=== PATIENT | female | born 1950 | race Caucasian/White ===

== ENCOUNTER 2016-06-21 17:38 | Emergency (ER) | payer OTHER ==
[~2016-06-21] VITALS: Wt 72.0 kg
[2016-06-21] MEDS ORDERED: DIPHTH/TET/ACEL PERTUSS (ADULT) 0.5 ML VIAL IM* ONE (18:30)
--- NOTE | 2016-06-21 19:39 | ERD ---
ER Documentation Chief Complaint Date/Time DATE: 06/21/16 TIME: 19:37 Chief Complaint RIGHT PINKY TOTAL AVUSLION OF TIP BLEEDING NOT CONTROLLED HPI Patient is a 66-year-old female with hypertension who presents with a left fifth finger laceration. She cut the tip of her finger off with a knife. There is no bone exposed at this time and it was just the tip of the finger. It was bleeding a lot however. It happened 30 minutes ago. Upon review of old medical record she has never been here before. She has had no treatment as of yet. She does not take blood thinning medicines. ROS All systems reviewed and are negative except as per history of present illness. PMhx/Soc Hx Cardiac Disorders: Yes (HTN) FmHx Family History: diabetes Physical Exam Vitals Vital Signs Date Time Temp Pulse Resp B/P Pulse Ox O2 Delivery O2 Flow Rate FiO2 06/21/16 17:42 98.5 93 20 150/71 98 Physical Exam Const: No acute distress Head: Atraumatic Eyes: Normal Conjunctiva ENT: Normal External Ears, Nose and Mouth. Neck: Full range of motion..~ No meningismus. Resp: Clear to auscultation bilaterally Cardio: Regular rate and rhythm, no murmurs Abd: Soft, non tender, non distended. Normal bowel sounds Skin: Distal fingertip laceration without any exposed bone Back: No midline or flank tenderness Ext: No cyanosis, or edema Neur: Awake and alert Psych: Normal Mood and Affect Results 24 hrs Current Medications Medications (Trade) Dose Ordered Sig/Chuy Route PRN Reason Start Time Stop Time Status Last Admin Dose Admin Diphtheria/ Tetanus/Acell Pertussis (Adacel) 0.5 ml ONCE ONCE IM* 06/21/16 18:30 06/21/16 18:31 DC 06/21/16 18:24 Procedures/MDM Laceration Repair by me: Anesthesia: None required Location: Left fifth finger Tendon/Joint/Nerves: No injury Foreign body: None detected after copious irrigation and exploration Technique: Dermabond Complexity: No subcutaneous sutures/mucosal repair/ edge excision Post Closure Length: 1 cm Patient's bleeding was easily controlled in the department and there is no indication of anemia. No evidence of compartment syndrome, neurologic injury, vascular injury, open joint, tendon laceration, or foreign body. Patient is appropriate for outpatient follow up. 48 hour wound check. Scar minimization instructions given. Departure Diagnosis: Primary Impression: Laceration Condition: Fair Patient Instructions: Laceration, Hand Referrals: Your doctor Additional Instructions: Llame al doctor MAANA y chantel matilda [place] PARA DENTRO DE 1-2 PATTERSON.Dgale a la secretaria que nosotros le instruimos hacer esta [place].Avise o llame si mendoza condicin se empeora antes de la [place]. Regresa aqui si peor o no mejor. JESSE MARY MD Jun 21, 2016 19:39
== END 2016-06-21 19:17 | disposition home or self-care (01) ==
LOC: FTE 17:38
DX: S61.217A Laceration without foreign body of left little finger without damage to nail, initial encounter (principal); I10 Essential (primary) hypertension; W26.0XXA Contact with knife, initial encounter; Y92.9 Unspecified place or not applicable; Z23 Encounter for immunization
CPT/HCPCS: 12001; 90471; 90715; Z7502

== ENCOUNTER 2016-09-30 09:57 | Day surgery (SDC) | payer OTHER ==
[~2016-09-30] VITALS: Ht 160 cm; Wt 92.0 kg
[2016-09-30 11:15] VITALS: Ht 160 cm; Wt 92.0 kg
[2016-09-30 11:31] VITALS: BP 134/58; PULSE 58; RESP 14
[2016-09-30] MEDS ORDERED: LOSA1TAB20 PO (12:07)
[2016-09-30] MEDS ORDERED: IBUP100T29 PO (12:07)
[2016-09-30] MEDS ORDERED: OMEP20CA16 PO (12:07)
[2016-09-30] MEDS ORDERED: ATOR40TA68 PO (12:07)
[2016-09-30] MEDS ORDERED: MIDAZOLAM 1 MG/ML 2 ML INJ ONE ×2 (12:40)
[2016-09-30] MEDS ORDERED: FENTAnyl 50 MCG/ML VIAL ONE (12:40)
[2016-09-30 12:44] VITALS: BP 100/53; PULSE 56; RESP 12
--- NOTE | 2016-10-24 14:12 | GILP ---
DATE OF PROCEDURE: NAME OF PROCEDURES: 1. Esophagogastroduodenoscopy and biopsy. 2. Colonoscopy. SURGEON: Sher Kirkland MD PREOPERATIVE DIAGNOSES: 1. Abdominal pain. 2. Gastroesophageal reflux disease. 3. Screening colonoscopy. POSTOPERATIVE DIAGNOSES: 1. Hiatal hernia. 2. Gastroesophageal reflux disease. 3. Gastritis with erosions. 4. Gastric mucosal biopsies were taken for Helicobacter pylori test. 5. Colonoscopy all the way to the cecum. 6. Diverticulosis of the colon. 7. Internal hemorrhoids. 8. No colon neoplasm was identified. INDICATION FOR THE PROCEDURE: Ms. Judy Steele is a 66-year-old female patient who had upper abdo preston pain and chronic heartburn, not responding to therapy. She also needed screening colonoscopy. The procedures and possible complications are well explained to the patient. The patient understood and consented to the procedure. DESCRIPTION OF PROCEDURE: Under the influence of fentanyl and Versed, the gastroscope was carefully introduced into the esophagus and under direct vision, it was advanced to the stomach and through t he pylorus into the duodenal bulb and descending duodenum. FINDINGS: ESOPHAGUS: The patient had hiatal hernia and gastroesophageal reflux disease. STOMACH: She had gastritis with severe erosions. Gastric mucosal biopsies were taken for Helicobac ter pylori test. DUODENUM: Normal. The colonoscope was carefully introduced in the rectum and under direct vision, it was advanced all the way to the cecum. FINDINGS: The patient had diverticulosis of the colon. The patient also had internal hemorrhoids. No colon neoplasm was identified. The patient tolerated the procedures very well and there was no complication from the procedures. A t the end of the procedures, she was awake with stable vital signs and she was discharged home to [facility] care of her family. IMPRESSION: Please see postoperative diagnoses. PLAN: 1. Omeprazole 40 mg p.o. q.a.m. 2. Zantac 300 mg p.o. at bedtime. 3. Await histopathology reports. 4. Next screening colonoscopy in 10 years. Dictated By: SHER HENSON/GUS Conf#: [id number] DID#: [id number]
== END 2016-09-30 14:34 | disposition home or self-care (01) ==
LOC: GIL 09:57
PROVIDERS: ATTEND Internal Medicine Gastroenterology
DX: Z12.11 Encounter for screening for malignant neoplasm of colon (principal); K44.9 Diaphragmatic hernia without obstruction or gangrene; K21.9 Gastro-esophageal reflux disease without esophagitis; K29.60 Other gastritis without bleeding; K57.90 Diverticulosis of intestine, part unspecified, without perforation or abscess without bleeding; K64.8 Other hemorrhoids; I10 Essential (primary) hypertension
CPT/HCPCS: 43239; 45378; 87081; J2250; J3010; Z7610

== ENCOUNTER 2018-01-29 06:18 | Emergency (ER) | END 2018-01-29 07:18 | disposition home or self-care (01) ==

== ENCOUNTER 2018-02-01 13:46 | Emergency (ER) | END 2018-02-01 14:33 | disposition home or self-care (01) ==

== ENCOUNTER 2018-10-24 12:18 | Emergency (ER) | payer OTHER ==
[~2018-10-24] VITALS: Ht 162.6 cm; Wt 75.8 kg
[~2018-10-24 12:18] MED LIST: ATOR40TA68 PO; BEN50 PO; FAMO-96 PO; HC30CR25 TOP; IBUP100T29 PO; LOSA1TAB25 PO; OMEP20CA16 PO; PRED20TA PO
[2018-10-24 12:24] VITALS: BP 157/78; PULSE 61; RESP 18; Ht 162.6 cm; Wt 75.8 kg
[2018-10-24] MEDS ORDERED: METHYLPREDNISOLONE 125 MG INJ IV ONE (13:00)
[2018-10-24] MEDS ORDERED: DIPHENHYDRAMINE 50 MG INJ IM ONE (13:00)
[2018-10-24] MEDS ORDERED: PRED20TA PO (13:04)
[2018-10-24] MEDS ORDERED: BEN25 PO (13:04)
--- NOTE | 2018-10-24 13:11 | ERD ---
ER Documentation Chief Complaint Chief Complaint PT with genralized body rash since 3AM today. HPI 68-year-old female presents with itchy rash on the trunk and extremities which began morning. Her only potential new medication is a nonspecified herbal sleep resume she took last night. She has history of hypertension but denies additional new medications. She denies history of known allergies to medications or food. Denies shortness of breath, fevers. She denies additional symptoms. Rashes burning and itchy. It is on her trunk and extremities. ROS All systems reviewed and are negative except as per history of present illness. Medications Home Meds Active Scripts Diphenhydramine Hcl* (Benadryl*) 25 Mg Cap, 25 MG PO Q6, #20 CAP Prov:MARYLIN MACEDO MD 10/24/18 Prednisone* (Prednisone*) 20 Mg Tab, 40 MG PO DAILY for 4 Days, TAB Prov:MARYLNI MACEDO MD 10/24/18 Famotidine* (Pepcid*) 20 Mg Tablet, 20 MG PO BID for 14 Days, #30 TAB Prov:MARYLIN MACEDO MD 02/01/18 Hydrocortisone* Topical (Hydrocortisone* Topical) 2.5%-28.3 Gm Cream..g., 1 APPLIC TOP BID for 7 Days, #1 TUB Prov:MARYLIN MACEDO MD 02/01/18 Diphenhydramine Hcl* (Benadryl*) 50 Mg Cap, 50 MG PO Q6 PRN for RASH, #30 CAP Prov:MARYLIN MACEDO MD 02/01/18 Prednisone* (Prednisone*) 20 Mg Tab, 40 MG PO DAILY for 4 Days, TAB Prov:BRIELLE CARBALLO PA-C 01/29/18 Reported Medications Ibuprofen (Ibuprofen Ib) 100 Mg Tab.chew, 400 MG PO for PAIN AND/OR INFLAMMATION, TAB.CHEW 09/30/16 Losartan-Hydrochlorothiazide (Losartan-HCTZ) 100-25 Mg Tab, 1 TAB PO DAILY, TAB 09/30/16 Omeprazole* (Omeprazole*) 20 Mg Capsule.dr, 20 MG PO BID, #60 CAP 09/30/16 Atorvastatin* (Atorvastatin*) 40 Mg Tablet, 20 MG PO DAILY, #30 TAB 09/30/16 Allergies Allergies: Coded Allergies: No Known Allergy (Unverified , 09/30/16) PMhx/Soc History of Surgery: Yes (TUBAL LIGATION, COLONOSCOPY) Anesthesia Reaction: No Hx Neurological Disorder: No Hx Respiratory Disorders: No Hx Cardiac Disorders: No Hx Psychiatric Problems: No Hx Miscellaneous Medical Probl: Yes (HIGH CHOLESTEROL) Hx Alcohol Use: No Hx Substance Use: No Hx Tobacco Use: No Smoking Status: Never smoker FmHx Family History: No diabetes, No coronary disease, No other Physical Exam Vitals Vital Signs Date Temp Pulse Resp B/P (MAP) Pulse Ox O2 O2 Flow FiO2 Time Delivery Rate 10/24/18 98.0 61 18 157/78 95 12:24 (104) Physical Exam Const: No acute distress Head: Atraumatic Eyes: Normal Conjunctiva ENT: Normal External Ears, Nose and Mouth. Oral pharynx normal, uvula midline. Neck: Full range of motion. No meningismus. Resp: Clear to auscultation bilaterally Cardio: Regular rate and rhythm, no murmurs Abd: Soft, non tender, non distended. Normal bowel sounds Skin: No petechiae or purpura. Scattered warmth urticarial type lesions on the trunk and extremities. No induration, streaking or vesicles. Back: No midline or flank tenderness Ext: No cyanosis, or edema Neur: Awake and alert Psych: Normal Mood and Affect Results 24 hrs Current Medications Medications Dose Sig/Chuy Start Time Status Last (Trade) Ordered Route PRN Stop Time Admin Dose Reason Admin 125 mg ONCE ONCE 10/24/18 DC Methylprednis IV 13:00 olone Sodium 10/24/18 13:06 Succinate (Solu-Medrol) 25 mg ONCE ONCE 10/24/18 DC 10/24/18 Diphenhydrami IM 13:00 13:11 ne HCl 10/24/18 13:01 (Benadryl) 125 mg ONCE ONCE 10/24/18 DC 10/24/18 Methylprednis IM 13:30 13:11 olone Sodium 10/24/18 13:30 Succinate (Solu-Medrol) Procedures/MDM Resents with a nonspecific urticarial type dermatitis suspicious for likely hive s or unspecified allergic reaction possibly due to herbal sleep aid. She has no signs of anaphylaxis, sepsis, purpura, life-threatening rashes, airway obstruction, hypoxemia. She will be treated with Solu-Medrol Benadryl here, continuation of prednisone, Benadryl, recommendations for primary care follow-up and return precautions. The patient was stable with no new complaints during the ER course. Clinically, there is no current evidence to suggest meningitis, sepsis, acute abdomen, pneumonia, stroke, acute coronary syndrome, pulmonary embolism, aortic dissection or any other emergent condition appearing to require further evaluation or hospitalization. Patient counseled regarding my diagnostic impression and care plan. Prior to discharge all questions answered. Pt agrees with treatment plan and understands strict return precautions. Pt is instructed to follow up with primary care provider within 24-48 hours. Precautionary instructions provided including instructions to return to the ER if not improving or for any worsening or changing symptoms or concerns. Disclaimer: Inadvertent spelling and grammatical errors are likely due to EHR/dictation software use and do not reflect on the overall quality of patient care. Also, please note that the electronic time recorded on this note does not necessarily reflect the actual time of the patient encounter. Departure Diagnosis: Primary Impression: Rash Condition: Stable Patient Instructions: Dermatitis, Non-Specific, Hives Referrals: DOCTOR,NOT ON STAFF (PCP) Additional Instructions: Cheque otro vez con mendoza doctor primario en el proximo de luna or regresa para mas o nueva simptomas. MARYLIN MACEDO MD Oct 24, 2018 13:11
[2018-10-24] MEDS ORDERED: METHYLPREDNISOLONE 125 MG INJ IM ONE (13:30)
== END 2018-10-24 13:22 | disposition home or self-care (01) ==
LOC: FTE 12:18
DX: R21 Rash and other nonspecific skin eruption (principal)
CPT/HCPCS: 96372; 99284; J1200; J2930

== ENCOUNTER 2018-10-26 08:13 | Emergency (ER) | payer OTHER ==
[~2018-10-26] VITALS: Ht 157.5 cm; Wt 77.4 kg
[~2018-10-26 08:13] MED LIST changes: +BEN25 PO
[2018-10-26 08:16] VITALS: BP 153/67; PULSE 82; RESP 16; Ht 157.5 cm; Wt 77.4 kg
[2018-10-26] MEDS ORDERED: FAMO-96 PO (08:59)
[2018-10-26] MEDS ORDERED: DIPHENHYDRAMINE 25 MG CAP PO ONE (09:00)
[2018-10-26] MEDS ORDERED: FAMOTIDINE 20 MG TAB PO ONE (09:00)
--- NOTE | 2018-10-26 09:49 | ERD ---
ER Documentation Chief Complaint Chief Complaint generalized body rash x 3 days HPI 68-year-old female presenting with body rash x3 days. Patient states she has had an allergic reaction but denies any trouble swallowing or breathing. She states is been well for the last 3 days and she is been taking medication the rash to disappears but then returns. States is very itchy in nature. Denies other medical problems. NKDA. Surgical history denies. Social history denies ROS All systems reviewed and are negative except as per history of present illness. Medications Home Meds Active Scripts Famotidine* (Pepcid*) 20 Mg Tablet, 20 MG PO BID for 4 Days, #30 TAB Prov:ERI CAZARES PA-C 10/26/18 Diphenhydramine Hcl* (Benadryl*) 25 Mg Cap, 25 MG PO Q6, #20 CAP Prov:MARYLIN MACEDO MD 10/24/18 Prednisone* (Prednisone*) 20 Mg Tab, 40 MG PO DAILY for 4 Days, TAB Prov:MARYLIN MACEDO MD 10/24/18 Famotidine* (Pepcid*) 20 Mg Tablet, 20 MG PO BID for 14 Days, #30 TAB Prov:MARYLIN MACEDO MD 02/01/18 Hydrocortisone* Topical (Hydrocortisone* Topical) 2.5%-28.3 Gm Cream..g., 1 APPLIC TOP BID for 7 Days, #1 TUB Prov:MARYLIN MACEDO MD 02/01/18 Diphenhydramine Hcl* (Benadryl*) 50 Mg Cap, 50 MG PO Q6 PRN for RASH, #30 CAP Prov:MARYLIN MACEDO MD 02/01/18 Prednisone* (Prednisone*) 20 Mg Tab, 40 MG PO DAILY for 4 Days, TAB Prov:BRIELLE CARBALLO PA-C 01/29/18 Reported Medications Ibuprofen (Ibuprofen Ib) 100 Mg Tab.chew, 400 MG PO for PAIN AND/OR INFLAMMATION, TAB.CHEW 09/30/16 Losartan-Hydrochlorothiazide (Losartan-HCTZ) 100-25 Mg Tab, 1 TAB PO DAILY, TAB 09/30/16 Omeprazole* (Omeprazole*) 20 Mg Capsule.dr, 20 MG PO BID, #60 CAP 09/30/16 Atorvastatin* (Atorvastatin*) 40 Mg Tablet, 20 MG PO DAILY, #30 TAB 09/30/16 Allergies Allergies: Coded Allergies: No Known Allergy (Unverified , 09/30/16) PMhx/Soc History of Surgery: Yes (TUBAL LIGATION, COLONOSCOPY) Anesthesia Reaction: No Hx Neurological Disorder: No Hx Respiratory Disorders: No Hx Cardiac Disorders: Yes (HTN) Hx Psychiatric Problems: No Hx Miscellaneous Medical Probl: Yes (HIGH CHOLESTEROL) Hx Alcohol Use: No Hx Substance Use: No Hx Tobacco Use: No Smoking Status: Never smoker FmHx Family History: No diabetes, No coronary disease, No other Physical Exam Vitals Vital Signs Date Temp Pulse Resp B/P (MAP) Pulse Ox O2 O2 Flow FiO2 Time Delivery Rate 10/26/18 98.0 82 16 153/67 96 08:16 (95) Physical Exam GENERAL: The patient is well-appearing, well-nourished, in no acute distress HEENT: Atraumatic. Conjunctivae are pink. Pupils equal, round, and reactive to light. There is no scleral icterus. Tympanic membranes clear bilaterally. Oropharynx clear. No nystagmus or photophobia. CHEST: Clear to auscultation bilaterally. There are no rales, wheezes or rhonchi. HEART: Regular rate and rhythm. No murmurs, clicks, rubs or gallops. SKIN: He has urticaria noted on the arms and torso. No vesicles or pustules. Results 24 hrs Current Medications Medications Dose Sig/Chuy Start Time Status Last (Trade) Ordered Route PRN Stop Time Admin Dose Reason Admin 25 mg ONCE ONCE 10/26/18 DC 10/26/18 Diphenhydrami PO 09:00 08:45 ne HCl 10/26/18 09:01 (Benadryl) Famotidine 20 mg ONCE ONCE 10/26/18 DC 10/26/18 (Pepcid) PO 09:00 08:45 10/26/18 09:01 Procedures/MDM ER course: Pepcid and Benadryl given in ED. MDM: 68-year-old female presenting with allergic reaction. I have low suspicion for respiratory distress and hypoxia. I have low suspicion for anaphylaxis. I have low suspicion for life-threatening rash. Patient is currently being seen by an weight engineer to determine the cause of the rash I do not feel there is indication for further blood work or studies at this time. Patient is discharged with strict ER precautions and told to follow-up with primary care within 1 to 2 days for close evaluation. She is told if symptoms change or worsen to return immediately to the ER. All questions answered at discharge Departure Diagnosis: Primary Impression: Rash Condition: Stable Patient Instructions: Allergic Reaction, Other (General) Referrals: [facility] DOUG DURAN (PCP) Additional Instructions: FOLLOW UP WITH YOUR PRIMARY CARE PHYSICIAN TOMORROW.Return to this facility if you are not improving as expected. ERI CAZARES PA-C Oct 26, 2018 09:49
== END 2018-10-26 09:04 | disposition home or self-care (01) ==
LOC: FTE 08:13
DX: L50.0 Allergic urticaria (principal); I10 Essential (primary) hypertension
CPT/HCPCS: 99282

== ENCOUNTER 2018-12-09 09:22 | Emergency (ER) | payer OTHER ==
[~2018-12-09] VITALS: Ht 160 cm; Wt 70.0 kg
[~2018-12-09 09:22] MED LIST changes: +CYCL10TA7 PO; +HYDR-4011 PO; +NAPR-985 PO
[2018-12-09 09:38] VITALS: BP 158/74; PULSE 69; RESP 18; Ht 160 cm; Wt 70.0 kg
[2018-12-09] MEDS ORDERED: KETOROLAC 60 MG INJ IM STA (10:52)
[2018-12-09] MEDS ORDERED: DIAZEPAM 5 MG TAB PO ONE (11:00)
[2018-12-09] MEDS ORDERED: DEXAMETHASONE 10 MG/ML 1 ML INJ IM ONE (11:00)
== END 2018-12-09 11:43 | disposition home or self-care (01) ==
LOC: FTE 09:22
DX: M54.5 Low back pain (principal); I10 Essential (primary) hypertension
CPT/HCPCS: 96372; 99284; J1100; J1885